=== PATIENT | male | born 1990 | race Hispanic/Latino ===

== ENCOUNTER 2018-06-15 15:15 | Emergency (ER) | payer BC, OTHER ==
[2018-06-15] MEDS ORDERED: FAMOTIDINE 20 MG/2 ML VIAL IV ONE (15:56)
[2018-06-15] MEDS ORDERED: NA CHLORIDE 0.9% 1,000 ML ONE (15:56)
[2018-06-15] MEDS ORDERED: ONDANSETRON 4 MG/2 ML VIAL ONE (15:56)
[2018-06-15 16:04] LABS: Absolute Lymphocytes (CBC) 0.5 K/uL (0.7-4.9); Absolute Monocytes 0.4 K/uL (0.1-1.3); Absolute Neutrophil 10.1 K/uL (1.8-8.0); Basophils % 0.3 % (0-1.3); Eosinophils % 0.4 % (0-4.4); Hematocrit 47.2 % (39.6-49.0); Lymphocytes % 4.4 % (15.3-44.8); MCH 30.4 pg (27.0-35.0); MCV 88.6 fL (80-100); MPV 10.6 fL (7.6-11.3); Monocytes % 3.7 % (3.3-12.3); RBC Red Blood Cell Count 5.33 M/uL (4.33-5.43)
[2018-06-15 16:23] LABS: Albumin 4.3 g/dL (3.4-5.0); Bilirubin Direct 0.3 mg/dL (0-0.2); Potassium 3.7 mmol/L (3.5-5.1)
[2018-06-15 16:24] LABS: Blood Morphology Comment NOTED (NOT SEEN); Platelet Estimate ADEQ; Poikilocytosis 1+; Stomatocytes 1+; Urine White Blood Cell Casts OK
--- NOTE | 2018-06-15 17:24 | RAD REPORT ---
EXAM DESCRIPTION: CT - Abdomen Pelvis W Contrast - 06/15/2018 5:11 pm CLINICAL HISTORY: Abdominal pain, nausea and vomiting COMPARISON: None. TECHNIQUE: Biphasic, helical CT imaging of the abdomen and pelvis was performed following 100 ml non -ionic IV contrast. No oral contrast was given. All CT scans are performed using dose optimization technique as appropriate and may include automated exposure control or mA/KV adjustment according to patient size. FINDINGS: No suspicious findings in the lung bases. Liver is fatty infiltrated with no focal liver lesions seen. Spleen and pancreas show no suspicious f indings. Gallbladder and biliary tree are also without suspicious finding. Symmetric renal function is seen with no hydronephrosis or suspicious renal mass. No pyelonephritis o r acute renal parenchymal process. Contracted urinary bladder shows no suspicious finding. Prostate g land and seminal vesicles are normal range. Fluid-filled stomach is present. No gastric wall thickening or mass. Multiple fluid filled small mame l loops are present. The appendix is normal. Moderate stool volume in the sigmoid and rectum portions of the colon. No acute colon process identifiable. No free air, free fluid or inflammatory stranding . No hernia, mass or bulky lymphadenopathy. No adrenal abnormality. No suspicious bony findings. IMPRESSION: No appendicitis or emergent CT abdomen or pelvis finding. Nonspecific gastroenteritis pattern is seen. No bowel obstruction. Fatty infiltration of the liver.
[2018-06-15 18:36] LABS: Urine Blood NEGATIVE (NEG); Urine Glucose NEGATIVE (NEG); Urine Protein 1+ (NEG)
--- NOTE | 2018-06-15 19:07 | RAD REPORT ---
EXAM DESCRIPTION: US - Abdomen Exam Limited - 06/15/2018 6:55 pm CLINICAL HISTORY: epigastric/upper abdomen pain COMPARISON: Abdomen Pelvis W Contrast dated 06/15/2018 FINDINGS: The gallbladder demonstrates no gallstones. No pericholecystic fluid or gallbladder wall t hickening. The common bile duct is normal measuring 4 mm. The liver demonstrates no findings of intrahepatic biliary dilatation. IMPRESSION: Unremarkable examination.
--- NOTE | 2018-06-15 19:20 | EDPHYS ---
Physician Documentation [facility] Name: Portillo Fabian Jr Age: 27 yrs Sex: Male : 1990 Arrival Date: 06/15/2018 Time: 15:20 Bed 27 Private MD: ED Physician David Blanton HPI: 06/15 15:50 This 27 yrs old Male presents to ER via Ambulatory with complaints of Vomiting.cp 15:50 The patient presents to the emergency department with nausea, that is moderate, cp vomiting, that is continuous, abdominal pain, of the epigastric area. Onset: The symptoms/episode began/occurred this morning. Possible causes: bad food exposure. 15:50 Associated signs and symptoms: Pertinent negatives: constipation, diarrhea, fever, GI cp bleeding, chest pain. Severity of symptoms: in the emergency department the symptoms are unchanged despite home interventions. Historical: - Allergies: 15:24 No Known Allergies; ss - PMHx: 15:24 None; ss - PSHx: 15:24 None; ss - Immunization history:: Adult Immunizations up to date. - Social history:: Smoking status: Patient uses tobacco products, denies chronic smoking, but will smoke occasionally. - Ebola Screening: : No symptoms or risks identified at this time. ROS: 16:00 Constitutional: Negative for body aches, chills, fever. cp 16:00 Eyes: Negative for injury, pain, redness, and discharge. cp 16:00 ENT: Negative for drainage from ear(s), ear pain, sore throat, difficulty swallowing, difficulty handling secretions. 16:00 Cardiovascular: Negative for chest pain, edema, palpitations. 16:00 Respiratory: Negative for cough, shortness of breath, wheezing. 16:00 Abdomen/GI: Positive for abdominal pain, nausea and vomiting, Negative for constipation, dysphagia, hematemesis, black/tarry stool, rectal bleeding. 16:00 Back: Negative for pain at rest, pain with movement. 16:00 : Negative for urinary symptoms, testicular pain 16:00 Skin: Negative for cellulitis, rash. 16:00 Neuro: Negative for altered mental status, headache, weakness. 16:00 All other systems are negative. Exam: 16:05 Constitutional: The patient appears in no acute distress, alert, awake, cp non-diaphoretic, non-toxic, well developed, well nourished. 16:05 Head/Face: Normocephalic, atraumatic. Eyes: Pupils equal round and reactive to light, cp extra-ocular motions intact. Lids and lashes normal. Conjunctiva and sclera are non-icteric and not injected. Cornea within normal limits. Periorbital areas with no swelling, redness, or edema. ENT: Nares patent. No nasal discharge, no septal abnormalities noted. Tympanic membranes are normal and external auditory canals are clear. Oropharynx with no redness, swelling, or masses, exudates, or evidence of obstruction, uvula midline. Mucous membranes moist. Neck: Trachea midline, no thyromegaly or masses palpated, and no cervical lymphadenopathy. Supple, full range of motion without nuchal rigidity, or vertebral point tenderness. No Meningismus. Chest/axilla: Normal chest wall appearance and motion. Nontender with no deformity. No lesions are appreciated. 16:05 Cardiovascular: Rate: tachycardic, Rhythm: regular, Heart sounds: murmur, not appreciated. 16:05 Respiratory: the patient does not display signs of respiratory distress, Respirations: normal, no use of accessory muscles, no retractions, no splinting, no tachypnea, labored breathing, is not present, Breath sounds: are clear throughout, no decreased breath sounds, no stridor, no wheezing. 16:05 Abdomen/GI: Inspection: abdomen appears normal, Bowel sounds: active, all quadrants, Palpation: soft, in all quadrants, mild abdominal tenderness, in the epigastric area, rebound tenderness, is not appreciated, voluntary guarding, is not appreciated, involuntary guarding, is not appreciated. 16:05 Back: ROM is normal, CVA tenderness, is absent. 16:05 Skin: cellulitis, is not appreciated, no rash present. 16:05 Neuro: Orientation: to person, place \T\ time. Mentation: lucid, able to follow commands, Cerebellar function: is grossly normal, Motor: moves all fours, strength is normal, Sensation: is normal. 16:15 ECG was reviewed by the Attending Physician. cp Vital Signs: 15:25 BP 133 / 77; Pulse 104; Resp 18 S; Temp 97.9(TE); Pulse Ox 97% on R/A; Weight 83.91 kg ss (R); Height 5 ft. 6 in. (167.64 cm) (R); Pain 5/10; 16:14 BP 108 / 60; Pulse 93; Pulse Ox 100% on R/A; rv 17:44 BP 119 / 58; Pulse 96; Pulse Ox 98% on R/A; rv 19:18 BP 121 / 65; Pulse 111; Pulse Ox 99% on R/A; rv 15:25 Body Mass Index 29.86 (83.91 kg, 167.64 cm) ss MDM: 15:28 Patient medically screened. cp 16:00 Differential diagnosis: gastritis, cholecystitis, pancreatitis, viral gastroenteritis, cp gastroenteritis. 19:15 Data reviewed: vital signs, nurses notes, lab test result(s), radiologic studies, CT cp scan, ultrasound. 19:15 Counseling: I had a detailed discussion with the patient and/or guardian regarding: the cp historical points, exam findings, and any diagnostic results supporting the discharge/admit diagnosis, lab results, radiology results, the need for outpatient follow up, a restaurant supervisor, to return to the emergency department if symptoms worsen or persist or if there are any questions or concerns that arise at home. Response to treatment: the patient's symptoms have markedly improved after treatment, VSS. Pain and nausea improved and vomiting resolved. Will discharge to home for continued monitoring. 06/15 15:44 Order name: Basic Metabolic Panel; Complete Time: 16:49 cp 06/15 15:44 Order name: CBC with Diff; Complete Time: 16:49 cp 06/15 15:44 Order name: Creatinine for Radiology; Complete Time: 16:49 cp 06/15 15:44 Order name: Hepatic Function; Complete Time: 16:49 cp 06/15 15:44 Order name: Lipase; Complete Time: 16:49 cp 06/15 16:12 Order name: CBC Smear Scan; Complete Time: 16:49 EDMS 06/15 15:44 Order name: IV Saline Lock; Complete Time: 15:56 cp 06/15 15:44 Order name: EKG; Complete Time: 15:44 cp 06/15 16:50 Order name: CT Abd/Pelvis - W/Contrast: no oral contrast; Complete Time: 17:28 cp 06/15 17:19 Order name: Urine Dipstick--Ancillary (enter results); Complete Time: 18:37 eb 06/15 18:37 Interpretation: Normal except: UKET 1+; UPROT 1+. cp 06/15 17:30 Order name: US Abdomen Limited; Complete Time: 19:08 06/15 19:08 Interpretation: Report reviewed. 06/15 15:44 Order name: Labs collected and sent; Complete Time: 15:56 06/15 15:44 Order name: EKG - Nurse/Tech; Complete Time: 16:09 06/15 19:09 Order name: PO challenge; Complete Time: 19:15 EC:15 Rate is 91 beats/min. Rhythm is regular. WA interval is normal. QRS interval is normal. cp QT interval is normal. T waves are Inverted in lead III. Interpreted by me. Reviewed by me. Administered Medications: 15:54 Drug: Pepcid 20 mg Route: IVP; Site: left antecubital; rv 17:04 Follow up: Response: No adverse reaction rv 15:55 Drug: NS 0.9% 1000 ml Route: IV; Rate: 1 bolus; Site: left antecubital; rv 17:04 Follow up: IV Status: Completed infusion rv 15:55 Drug: Zofran 4 mg Route: IVP; Site: left antecubital; rv 17:04 Follow up: Response: No adverse reaction rv Disposition: 06/15/18 19:19 Discharged to Home. Impression: Nausea and vomiting, Upper abdominal pain, unspecified, Acute pancreatitis, unspecified. - Condition is Stable. - Discharge Instructions: Abdominal Pain, Adult, Clear Liquid Diet, Adult, Nausea and Vomiting, Adult, Acute Pancreatitis, Dental Work and . - Prescriptions for Protonix 40 mg Oral Tablet - take 1 tablet by ORAL route once daily; 30 tablet. Zofran 4 mg Oral Tablet - take 1 tablet by ORAL route every 12 hours As needed; 20 tablet. - Medication Reconciliation Form, Thank You Letter, Antibiotic Education, Prescription Opioid Use, Work release form form. - Follow up: Tonny Howe MD; When: 2 - 3 days; Reason: Recheck today's complaints. - Problem is new. - Symptoms have improved. Addendum: 06/18/2018 07:48 Co-signature as Attending Physician, David Blanton MD. r n Signatures: Dispatcher [employer] EDCO David Blanton MD MD rn Smirch, Shelby, RN RN ss Real Davis PA PA cp Tim, Edgardo, RN RN rv Corrections: (The following items were deleted from the chart) 06/15 19:21 19:19 06/15/2018 19:19 Discharged to Home. Impression: Nausea and vomiting; Upper cp abdominal pain, unspecified. Condition is Stable. Forms are Medication Reconciliation Form, Thank You Letter, Antibiotic Education, Prescription Opioid Use. Follow up: Tonny Howe; When: 2 - 3 days; Reason: Recheck today's complaints. Problem is new. Symptoms have improved. cp 19:33 19:21 06/15/2018 19:19 Discharged to Home. Impression: Nausea and vomiting; Upper rv abdominal pain, unspecified; Acute pancreatitis, unspecified. Condition is Stable. Discharge Instructions: Abdominal Pain, Adult, Nausea and Vomiting, Adult, Acute Pancreatitis, Clear Liquid Diet, Adult. Prescriptions for Protonix 40 mg Oral Tablet - take 1 tablet by ORAL route once daily; 30 tablet, Zofran 4 mg Oral Tablet - take 1 tablet by ORAL route every 12 hours As needed; 20 tablet. and Forms are Medication Reconciliation Form, Thank You Letter, Antibiotic Education, Prescription Opioid Use. Follow up: Tonny Howe; When: 2 - 3 days; Reason: Recheck today's complaints. Problem is new. Symptoms have improved. cp
--- NOTE | 2018-06-15 19:20 | ER ---
Nurse's Notes [facility] Name: Portillo Fabian Jr Age: 27 yrs Sex: Male : 1990 Arrival Date: 06/15/2018 Time: 15:20 Bed 27 Private MD: Diagnosis: Nausea and vomiting;Upper abdominal pain, unspecified;Acute pancreatitis, unspecified Presentation: 06/15 15:23 Presenting complaint: Patient states: vomiting since this morning. Denies diarrhea. ss Reports body aches. Pt denies cough. Denies abd pain. Transition of care: patient was not received from another setting of care. Onset of symptoms was June 15, 2018. Risk Assessment: Do you want to hurt yourself or someone else? Patient reports no desire to harm self or others. Initial Sepsis Screen: Does the patient meet any 2 criteria? No. Patient's initial sepsis screen is negative. Does the patient have a suspected source of infection? No. Patient's initial sepsis screen is negative. Care prior to arrival: None. 15:23 Method Of Arrival: Ambulatory ss 15:23 Acuity: LEANNA 3 ss Triage Assessment: 15:57 GI: Reports vomiting, since this morning. rv Historical: - Allergies: 15:24 No Known Allergies; ss - PMHx: 15:24 None; ss - PSHx: 15:24 None; ss - Immunization history:: Adult Immunizations up to date. - Social history:: Smoking status: Patient uses tobacco products, denies chronic smoking, but will smoke occasionally. - Ebola Screening: : No symptoms or risks identified at this time. Screenin:57 Abuse screen: Denies threats or abuse. Denies injuries from another. Nutritional rv screening: No deficits noted. Tuberculosis screening: No symptoms or risk factors identified. Fall Risk None identified. Assessment: 15:56 General: Appears in no apparent distress. comfortable, Behavior is calm, cooperative. rv Pain: Denies pain. Neuro: Level of Consciousness is awake, alert, obeys commands, Oriented to person, place, time, situation. Cardiovascular: Capillary refill < 3 seconds. Respiratory: Airway is patent. GI: Abdomen is flat, non-distended. : No signs and/or symptoms were reported regarding the genitourinary system. EENT: No signs and/or symptoms were reported regarding the EENT system. Derm: Skin is intact. 17:45 Reassessment: Patient appears in no apparent distress at this time. Patient and/or rv family updated on plan of care and expected duration. Pain level reassessed. Patient is alert, oriented x 3, equal unlabored respirations, skin warm/dry/pink. Vital Signs: 15:25 BP 133 / 77; Pulse 104; Resp 18 S; Temp 97.9(TE); Pulse Ox 97% on R/A; Weight 83.91 kg ss (R); Height 5 ft. 6 in. (167.64 cm) (R); Pain 5/10; 16:14 BP 108 / 60; Pulse 93; Pulse Ox 100% on R/A; rv 17:44 BP 119 / 58; Pulse 96; Pulse Ox 98% on R/A; rv 19:18 BP 121 / 65; Pulse 111; Pulse Ox 99% on R/A; rv 15:25 Body Mass Index 29.86 (83.91 kg, 167.64 cm) ED Course: 15:20 Patient arrived in ED. mr 15:24 Triage completed. ss 15:24 Patient placed. ss 15:28 Real Davis PA is PHCP. cp 15:28 David Blanton MD is Attending Physician. cp 15:45 Inserted saline lock: 20 gauge in left antecubital area, using aseptic technique. Blood rv collected. 15:57 Patient has correct armband on for positive identification. Bed in low position. Call rv light in reach. Side rails up X 1. Pulse ox on. NIBP on. 17:11 CT Abd/Pelvis - W/Contrast: no oral contrast In Process Unspecified. EDMS 18:54 Ultrasound completed. Patient tolerated well. cy 18:55 US Abdomen Limited In Process Unspecified. EDMS 19:19 Tonny Howe MD is Referral Physician. cp 19:32 No provider procedures requiring assistance completed. IV discontinued, bleeding rv controlled, No redness/swelling at site. Pressure dressing applied. Administered Medications: 15:54 Drug: Pepcid 20 mg Route: IVP; Site: left antecubital; rv 17:04 Follow up: Response: No adverse reaction rv 15:55 Drug: NS 0.9% 1000 ml Route: IV; Rate: 1 bolus; Site: left antecubital; rv 17:04 Follow up: IV Status: Completed infusion rv 15:55 Drug: Zofran 4 mg Route: IVP; Site: left antecubital; rv 17:04 Follow up: Response: No adverse reaction rv Outcome: 19:19 Discharge ordered by . tiffanie 19:32 Discharged to home ambulatory. rv 19:32 Condition: improved 19:32 Discharge instructions given to patient, Instructed on discharge instructions, follow up and referral plans. medication usage, Demonstrated understanding of instructions, follow-up care, medications, Prescriptions given X 2. 19:33 Patient left the ED. rv Signatures: Dispatcher [employer] EDNM Nancy Granados Shelby, RN RN ss Real Davis PA PA cp Yong, Chheannith cy Vicente, Ronaldo, RN RN rv
--- NOTE | 2018-06-16 09:27 | EKG ---
Test Date: 2018-06-15 Test Time: 16:03:10 [employer] Officer: MEASUREMENT RESULTS: Intervals: Rate: 91 [place]: 144 QRSD: 92 QT: 366 QTc: 450 [place]: P: 50 [place]: 144 QRS: 93 T: 12 INTERPRETIVE STATEMENTS: Normal sinus rhythm Rightward axis Borderline ECG No previous ECG available for comparison Electronically Signed On 06-16-18 09:27:06 CDT by Roel Sanchez
== END 2018-06-15 19:33 | disposition home or self-care (01) ==
LOC: ER 15:15
DX: K85.90 Acute pancreatitis without necrosis or infection, unspecified (principal); R10.10 Upper abdominal pain, unspecified; Z72.0 Tobacco use
CPT/HCPCS: 36415; 74177; 76705; 80048; 80076; 81003; 83690; 85025; 93005; 96361; 96374; 96375; 99284; J2405; J7030; Q9967